=== PATIENT | female | born 1980 | race Caucasian/White ===

== ENCOUNTER 2019-05-29 19:29 | Emergency (ER) | payer SELFPAY ==
[~2019-05-29] VITALS: Ht 170.2 cm; Wt 112.5 kg
[2019-05-29] MEDS ORDERED: NKM (19:34)
[2019-05-29 19:35] VITALS: BP 128/88
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
--- NOTE | 2019-05-29 19:40 | NUR ---
ED Nurse Note: XRAY AT BEDSIDE
--- NOTE | 2019-05-29 19:50 | NUR ---
ED Nurse Note: XRAY COMPLETED
[2019-05-29] MEDS ORDERED: TYLENOL EXTRA500 MG ORAL (20:09)
[2019-05-29 20:15] VITALS: BP 124/89
--- NOTE | 2019-05-29 20:15 | NUR ---
ER DISCHARGE NOTE: Patient is cleared to be discharged per ERMD, pt is aox4, on room air, with stable vital signs. pt was given dc and prescription instructions, pt was able to verbalize understanding, pt id band removed. pt is able to ambulate with steady gait. pt took all belongings. sling applied to pt arm. pt is accompanied by friend (JACQUIE) home.
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
== END 2019-05-29 20:15 | disposition home or self-care (01) ==
LOC: EMR 19:39
DX: S50.11XA Contusion of right forearm, initial encounter (principal); V49.9XXA Car occupant (driver) (passenger) injured in unspecified traffic accident, initial encounter; Y92.410 Unspecified street and highway as the place of occurrence of the external cause
CPT/HCPCS: 29125; 99283